=== PATIENT | female | born 1995 | race Caucasian/White ===

== ENCOUNTER 2022-09-13 11:27 | Inpatient (IN) | payer BC ==
[~2022-09-13] VITALS: Ht 152.4 cm; Wt 65.8 kg
[2022-09-13] MEDS ORDERED: METHYLERGONOVINE 0.2 MG/ML AMP IM PRN ×2 (12:10→20:50)
[2022-09-13] MEDS ORDERED: CARBOPROST 250 MCG/ML AMP IM PRN (12:10)
[2022-09-13 12:50] LABS: APPEARANCE,URINE CLEAR (CLEAR); BILIRUBIN,URINE NEGATIVE (NEGATIVE); BLOOD, URINE NEGATIVE (NEGATIVE); COLOR,URINE YELLOW (YELLOW); LEUKOCYTE ESTERASE ,URINE NEGATIVE (NEGATIVE); NITRITE, URINE NEGATIVE (NEGATIVE); PH,URINE 6.5 (5.0-9.0); UGLUCOSE NEGATIVE (NEGATIVE)
[2022-09-13] MEDS ORDERED: OXYTOCIN 20 UNITS in LACTATED RINGERS 1,000 ML IV SCH (12:55)
[2022-09-13 12:59] VITALS: BP 129/86
[2022-09-13 13:07] LABS: PROTHROMBIN TIME 9.3 secs (10.8-13.4)
[2022-09-13 13:12] LABS: BASOPHILS % (AUTO) 0.3 % (0.0-2.0); EOSINOPHILS # (AUTO) 0.1 K/uL (0-0.4); EOSINOPHILS % (AUTO) 1.1 % (0.0-4.0); HEMATOCRIT 33.6 % (36-48); HEMOGLOBIN 11.1 g/dL (12.0-16.0); LYMPHOCYTES # (AUTO) 2.2 K/uL (2.5-16.5); LYMPHOCYTES % (AUTO) 22.4 % (20.5-51.1); MEAN CORPUSCULAR HEMOGLOBIN 28 pg (27-31); MEAN CORPUSCULAR HGB CONC 33 g/dL (33-37); MONOCYTES # (AUTO) 0.8 K/uL (0.8-1.0); NEUTROPHILS # (AUTO) 6.6 K/uL (1.8-7.7); NEUTROPHILS % (AUTO) 68.2 % (42.2-75.2); PLATELET COUNT (AUTO) 228 K/uL (140-450); RED CELL DISTRIBUTION WIDTH 15.6 % (11.6-13.7); WHITE BLOOD COUNT (AUTO) 9.7 K/uL (4.8-10.8)
[2022-09-13 13:16] LABS: ANION GAP 13.4 (8-16); CARBON DIOXIDE 21.3 mmol/L (21-32); CREATININE 0.7 mg/dL (0.6-1.3); POTASSIUM 3.7 mmol/L (3.5-5.1); TOTAL BILIRUBIN 0.2 mg/dL (0.0-1.0)
[2022-09-13] MEDS: LACTATED RINGERS 1,000 ML IV SCH ×2 (13:40→16:21)
[2022-09-13] MEDS ORDERED: OXYTOCIN 20 UNITS/LR PREMIX 1,000 ML IV ONE (14:15)
[2022-09-13] MEDS ORDERED: ROPIVACAINE 0.2%/NS PREMIX 200 ML EPI ONE (16:18)
[2022-09-13] MEDS ORDERED: fentaNYL citrate 0.05 MG/ML VIAL ONE (16:19)
--- NOTE | 2022-09-13 16:26 | NUR ---
PATIENT HAS BEEN SCREENED AND CATEGORIZED LOW NUTRITION RISK. PATIENT WILL BE SEEN WITHIN 7 DAYS OF ADMISSION. 09/20/22 REVIEWED BY JON[address]AN [address]
[2022-09-13] MEDS ORDERED: LIDOCAINE MPF 2% 100 MG/5 ML VIAL INJ ONE (16:40)
[2022-09-13] MEDS ORDERED: LIDOCAINE 2% 1000 MG/50 ML VIAL INJ ONE (16:45)
[2022-09-13] MEDS ORDERED: BENZOCAINE/MENTHOL 20%-0.5% 60 GM CAN TP PRN (20:50)
[2022-09-13] MEDS ORDERED: METHYLERGONOVINE 0.2 MG TAB PO PRN (20:50)
[2022-09-13] MEDS ORDERED: OXYTOCIN 10 UNITS/ML VIAL IM PRN (20:50)
[2022-09-14] MEDS: IBUPROFEN 800 MG TAB PO PRN ×2 (04:19→17:50)
[2022-09-14 07:49] LABS: HEMOGLOBIN 10.3 g/dL (12.0-16.0)
== END 2022-09-15 03:25 | disposition home or self-care (01) | DRG 768 ==
LOC: MLD 11:27 → OBSVTOIN 12:08 → MLD 18:04 → MFCC 21:15
PROVIDERS: ADMIT Obstetrics & Gynecology; ATTEND Obstetrics & Gynecology
PROC: 10E0XZZ Delivery of Products of Conception, External Approach (ICD-10-PCS; principal; 2022-09-13)
PROC: 0UBG0ZZ Excision of Vagina, Open Approach (ICD-10-PCS; 2022-09-13)
PROC: 3E0R3BZ Introduction of Anesthetic Agent into Spinal Canal, Percutaneous Approach (ICD-10-PCS; 2022-09-13)
PROC: 00HU33Z Insertion of Infusion Device into Spinal Canal, Percutaneous Approach (ICD-10-PCS; 2022-09-13)
DX: O41.03X0 Oligohydramnios, third trimester, not applicable or unspecified (principal); Z37.0 Single live birth; Z3A.38 38 weeks gestation of pregnancy; N89.8 Other specified noninflammatory disorders of vagina; O36.8130 Decreased fetal movements, third trimester, not applicable or unspecified; Z20.822 Contact with and (suspected) exposure to COVID-19; O75.89 Other specified complications of labor and delivery
CPT/HCPCS: 36415; 80053; 81003; 85018; 85025; 85610; 85730; 86592; 86886; 86900; 86901; J2001; J2590; J2795; J3010; J7120